=== PATIENT | male | born 1965 | race American Indian/Alaskan Native ===

== ENCOUNTER 2016-08-04 16:55 | Emergency (ER) | payer MEDICAID, OTHER ==
--- NOTE | 2016-08-04 17:50 | EDM.PDOC ---
<Roland Hernandez - Last Filed: 08/04/16 17:45> ED HPI GENERAL MEDICAL PROBLEM - General Chief Complaint: General Stated Complaint: HIGH INR Time Seen by Provider: 08/04/16 17:40 Source of Information: Reports: Patient, Family History Limitations: Reports: No limitations - History of Present Illness INITIAL COMMENTS - FREE TEXT/NARRATIVE: 50-year-old male who was recently put on an antibiotic for "the flu". He was in for a recheck today and was feeling much better but his primary care provider checked his INR because of the possibility of the antibiotic affecting his levels, and was found to have an INR over 8. He also had some pink urine, his urine had blood and he also saw a small amount of bright red blood in his stool. He does have a history of hemorrhoids. His stool guaiac was positive at the clinic, his hemoglobin was normal. He was sent to our ER for further treatment. The patient himself feels physically well. Severity: moderate Associated Symptoms: Reports: denies other symptoms - Related Data Allergies Allergy/AdvReac Type Severity Reaction Status Date / Time heparin Allergy Hypotension Verified 08/04/16 17:10 morphine Allergy Rash Verified 08/04/16 17:10 Home Meds: Home Meds Acetaminophen 600 mg PO Q4H PRN 08/04/16 [History] Albuterol [Ventolin 2 MG/5 ML] 2 puff INH Q4H PRN 08/04/16 [History] Albuterol/Ipratropium [Combivent] 2 puff INH Q4H PRN 08/04/16 [History] Amiodarone [Cordarone] 1 tab PO DAILY 08/04/16 [History] Aspirin [Halfprin] 1 tab PO DAILY 08/04/16 [History] Fish Oil/[place]-3 Fatty Acids [Fish Oil 1,000 MG] 2 cap PO DAILY 08/04/16 [ History] Formoterol/Mometasone [Dulera 100 MCG/5 MCG] 2 puff INH DAILY 08/04/16 [History] Gabapentin [Neurontin] 600 mg PO DAILY 08/04/16 [History] Metoprolol Tartrate 12.5 mg PO BID 08/04/16 [History] Warfarin [Coumadin] 4 mg PO QPM 08/04/16 [History] atorvaSTATin [Lipitor] 10 mg PO QPM 08/04/16 [History] Past Medical History Cardiovascular History: Reports: Bypass, Heart valve replacement, High cholesterol, Hypertension Respiratory History: Reports: COPD Gastrointestinal History: Reports: Cholelithiasis Neurological History: Reports: Neuropathy, peripheral - Past Surgical History Cardiovascular Surgical History: Reports: Coronary artery bypass, Valve replacement GI Surgical History: Reports: Cholecystectomy Social & Family History - Tobacco Use Smoking Status *Q: Current Every Day Smoker Years of Tobacco use: 35 Packs/Tins Daily: 0.5 Second Hand Smoke Exposure: Yes - Caffeine Use Caffeine Use: Reports: Coffee - Recreational Drug Use Recreational Drug Use: No ED ROS GENERAL - Review of Systems Review Of Systems: See Below Constitutional: Denies: fever, chills HEENT: Denies: Nosebleed Respiratory: Denies: Shortness of Breath, Cough Cardiovascular: Denies: Chest pain GI/Abdominal: Reports: Other (Some rectal bleeding). Denies: Abdominal pain : Reports: other (Urine is "pink") Skin: Denies: bruising Neurological: Reports: No Symptoms ED EXAM, GENERAL - Physical Exam Exam: See Below Exam Limited By: No limitations General Appearance: alert, no apparent distress Respiratory/Chest: no respiratory distress, lungs clear GI/Abdominal: non tender Neurological: alert, oriented Psychiatric: normal affect, normal mood Skin Exam: Warm, Dry Course - Vital Signs Last Recorded V/S: Last Vital Signs Temp 36.7 C 08/04/16 17:33 Pulse 60 08/04/16 18:25 Resp 20 08/04/16 18:25 BP 131/76 08/04/16 18:25 Pulse Ox 91 L 08/04/16 18:25 - Orders/Labs/Meds Labs: Laboratory Tests 08/04/16 08/04/16 Range/Units 17:49 17:49 PT 82.4 H (9.5-12.0) sec INR 7.31 H* (0.80-1.20) Urine Color Yellow Urine Appearance Slightly cloudy Urine pH 6.0 (4.5-8.0) Ur Specific [place] 1.025 (1.008-1.030) Urine Protein Negative (NEGATIVE) mg/dL Urine Glucose (UA) Normal (NEGATIVE) mg/dL Urine Ketones Negative (NEGATIVE) mg/dL Urine Occult Blood Large (NEGATIVE) Urine Nitrite Negative (NEGAITVE) Urine Bilirubin Small (NEGATIVE) Urine Urobilinogen 4 (NORMAL) mg/dL Ur Leukocyte Esterase Negative (NEGATIVE) Urine RBC >100 H (0-5) Urine WBC 0-5 (0-5) Ur Epithelial Cells Few Amorphous Sediment Not seen Urine Bacteria Moderate Urine Mucus Many - Re-Assessments/Exams Free Text/Narrative Re-Assessment/Exam: 08/04/16 17:51 An INR and urine were we rechecked. Care was turned over to Dr. Lema. Departure - Departure Disposition: Home, Self-Care 01 Clinical Impression: Elevated INR Forms: ED Department Discharge Additional Instructions: Please go to the clinic tomorrow and have your INR rechecked. If you have any major bleeding tonight he'll have to return to the ER. <Nba Lema - Last Filed: 08/04/16 18:48> ED HPI GENERAL MEDICAL PROBLEM - History of Present Illness INITIAL COMMENTS - FREE TEXT/NARRATIVE: Discussed with Dr García. He is not having any major bleeding. We think it best to not give more Vit K as he has an artificial valve. We will have him recheck his INR in the clinic tomorrow. Departure - Departure Time of Disposition: 18:48 Condition: good
[2016-08-04 18:25] VITALS: BP 131/76
== END 2016-08-04 18:55 | disposition home or self-care (01) ==
LOC: JP.ED 16:55
DX: R79.1 Abnormal coagulation profile (principal); J44.9 Chronic obstructive pulmonary disease, unspecified; E78.00 Pure hypercholesterolemia, unspecified; I10 Essential (primary) hypertension; F17.210 Nicotine dependence, cigarettes, uncomplicated; Z95.1 Presence of aortocoronary bypass graft; Z79.82 Long term (current) use of aspirin; Z79.01 Long term (current) use of anticoagulants; Z79.899 Other long term (current) drug therapy; Z90.49 Acquired absence of other specified parts of digestive tract
CPT/HCPCS: 36415; 81001; 85610; 99282; 99283

== ENCOUNTER 2018-08-09 17:06 | Emergency (ER) | payer MEDICAID, OTHER ==
[2018-08-09 18:28] VITALS: BP 132/63
--- NOTE | 2018-08-09 18:42 | EDM.PDOC ---
ED HPI GENERAL MEDICAL PROBLEM - General Chief Complaint: Respiratory Problem Stated Complaint: PNEUMONIA SYMPTOMS Time Seen by Provider: 08/09/18 18:40 Source of Information: Reports: Patient, RN History Limitations: Reports: No Limitations - History of Present Illness INITIAL COMMENTS - FREE TEXT/NARRATIVE: 52 yo NA male was seen earlier today by [facility]. They thought he might have pneumonia and provided him with a script for an antibiotic but asked him to come here for a CXR before filling it. Has been ill since last Monday, the first day was the only day he had a fever. Is mildly SOB. Cough productive of cordova sputum. Has doxycycline per his primary. Onset: Gradual Onset Date: 08/04/18 Duration: Day(s):, Getting Worse Location: Reports: Chest Quality: Reports: Other (no pain) Severity: Mild Improves with: Reports: None Worsens with: Reports: Other (time) Context: Reports: Other (see HPI) Associated Symptoms: Reports: Cough, Shortness of Breath (mild). 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: Other (see below) (none) Denies Pain Score (Numeric/FACES): 0 - Related Data Allergies Allergy/AdvReac Type Severity Reaction Status Date / Time heparin Allergy Hypotension Verified 08/09/18 17:54 morphine Allergy Rash Verified 08/09/18 17:54 Home Meds: Home Meds Acetaminophen 600 mg PO Q4H PRN 08/04/16 [History] Albuterol [Ventolin 2 MG/5 ML] 2 puff INH Q4H PRN 08/04/16 [History] Albuterol/Ipratropium [Combivent] 2 puff INH Q4H PRN 08/04/16 [History] Amiodarone [Cordarone] 1 tab PO DAILY 08/04/16 [History] Aspirin [Halfprin] 1 tab PO DAILY 08/04/16 [History] Fish Oil/[place]-3 Fatty Acids [Fish Oil 1,000 MG] 2 cap PO DAILY 08/04/16 [ History] Formoterol/Mometasone [Dulera 100 MCG/5 MCG] 2 puff INH DAILY 08/04/16 [History] Metoprolol Tartrate 12.5 mg PO BID 08/04/16 [History] Warfarin [Coumadin] 4 mg PO QPM 08/04/16 [History] atorvaSTATin [Lipitor] 10 mg PO QPM 08/04/16 [History] Dextromethorphan/guaiFENesin [Robitussin DM] 5 ml PO Q4H 08/09/18 [History] Doxycycline [Doxycycline Hyclate] 100 mg PO BID 08/09/18 [History] predniSONE [Prednisone] 5 mg PO ASDIRECTED 08/09/18 [History] Past Medical History Cardiovascular History: Reports: Bypass, Heart Valve Replacement, High Cholesterol, Hypertension Respiratory History: Reports: COPD Gastrointestinal History: Reports: Cholelithiasis Neurological History: Reports: Neuropathy, Peripheral - Infectious Disease History Infectious Disease History: Reports: Chicken Pox - Past Surgical History Cardiovascular Surgical History: Reports: Coronary Artery Bypass, Valve Replacement GI Surgical History: Reports: Cholecystectomy Social & Family History - Tobacco Use Smoking Status *Q: Current Every Day Smoker Years of Tobacco use: 35 Packs/Tins Daily: 0.5 Used Tobacco, but Quit: No Second Hand Smoke Exposure: Yes - Caffeine Use Caffeine Use: Reports: Coffee, Soda - Recreational Drug Use Recreational Drug Use: No Recreational Drug Type: Reports: Marijuana/Hashish ED ROS GENERAL - Review of Systems Review Of Systems: See Below Constitutional: Reports: No Symptoms HEENT: Reports: No Symptoms Respiratory: Reports: Shortness of Breath, Cough, Sputum. Denies: Wheezing, Pleuritic Chest Pain, Hemoptysis Cardiovascular: Reports: No Symptoms Endocrine: Reports: No Symptoms GI/Abdominal: Reports: No Symptoms : Reports: No Symptoms Musculoskeletal: Reports: No Symptoms Skin: Reports: No Symptoms Neurological: Reports: No Symptoms ED EXAM, GENERAL - Physical Exam Exam: See Below Exam Limited By: No Limitations General Appearance: Alert, WD/WN, No Apparent Distress Eye Exam: Bilateral Eye: Normal Inspection Ears: Normal External Exam, Normal Canal, Hearing Grossly Normal, Normal TMs Ear Exam: Bilateral Ear: Auricle Normal, Canal Normal, TM normal Nose: Normal Inspection, No Blood Throat/Mouth: Normal Inspection, Normal Lips, Normal Oropharynx, Normal Voice, No Airway Compromise Head: Atraumatic, Normocephalic Neck: Normal Inspection Respiratory/Chest: No Respiratory Distress, No Accessory Muscle Use, Rhonchi ( both bases) Cardiovascular: Regular Rate, Rhythm GI/Abdominal: Normal Bowel Sounds, Soft, Non-Tender, No Distention Back Exam: Normal Inspection. No: CVA Tenderness (R), CVA Tenderness (L) Extremities: Normal Inspection, Normal Range of Motion, Non-Tender, No Pedal Edema Neurological: Alert, Oriented, CN II-XII Intact, Normal Cognition, No Motor/ Sensory Deficits Psychiatric: Normal Affect, Normal Mood Skin Exam: Warm, Dry, Intact, Normal Color, No Rash Course - Vital Signs Last Recorded V/S: Last Vital Signs Temp 36.2 C 08/09/18 17:59 Pulse 59 L 08/09/18 18:27 Resp 20 08/09/18 17:59 BP 132/63 08/09/18 18:27 Pulse Ox 89 L 08/09/18 18:27 - Orders/Labs/Meds Orders: Active Orders 24 hr Category Date Time Status Chest 2V [CR] Stat Exams 08/09/18 18:20 Taken - Radiology Interpretation Free Text/Narrative:: CXR-basilar infiltrates Departure - Departure Time of Disposition: 18:53 Disposition: Home, Self-Care 01 Condition: Fair Clinical Impression: Community acquired bacterial pneumonia - Discharge Information *PRESCRIPTION DRUG MONITORING PROGRAM REVIEWED*: No *COPY OF PRESCRIPTION DRUG MONITORING REPORT IN PATIENT JOLENE: No Instructions: Community-Acquired Pneumonia, Adult, [id number] Referrals: Lucila Jasso I TELEHEALTH DIRECTOR [Primary Care Provider] - Forms: ED Department Discharge Additional Instructions: Start your doxycycline as directed tonight. Return here if worse over the weekend. See your provider for recheck Monday. Acetaminophen for pain or fever control. - My Orders Last 24 Hours: My Active Orders 08/09/18 18:20 Chest 2V [CR] Stat - Assessment/Plan Last 24 Hours: My Active Orders 08/09/18 18:20 Chest 2V [CR] Stat
--- NOTE | 2018-08-09 19:24 | CRLCR ---
INDICATION: Shortness of breath TECHNIQUE: Chest 2 views COMPARISON: Chest x-ray 11/17/2009 FINDINGS: Cardiovascular and mediastinum: Upper normal heart size. Lungs and pleural spaces: No pleural effusion or pneumothorax. Bronchial wall thickening with pulmonary cephalization and slight focal airspace disease in the right middle lobe. Bones and soft tissues: Status post median sternotomy. IMPRESSION: Bronchial wall thickening with slight right middle lobe airspace disease consistent with atelectasis or pneumonia. Dictated by Bin Khoury MD @ Aug 09 2018 7:20PM Signed by Dr. Bin Khoury @ Aug 09 2018 7:21PM
== END 2018-08-09 19:01 | disposition home or self-care (01) ==
LOC: JP.ED 17:06
DX: J18.9 Pneumonia, unspecified organism (principal); B96.89 Other specified bacterial agents as the cause of diseases classified elsewhere; E78.00 Pure hypercholesterolemia, unspecified; F17.210 Nicotine dependence, cigarettes, uncomplicated; I10 Essential (primary) hypertension; J44.9 Chronic obstructive pulmonary disease, unspecified; Z95.1 Presence of aortocoronary bypass graft; Z79.899 Other long term (current) drug therapy; Z88.5 Allergy status to narcotic agent; Z79.01 Long term (current) use of anticoagulants; Z95.4 Presence of other heart-valve replacement
CPT/HCPCS: 71046; 99283; 99283-25